=== PATIENT | male | born 1975 | race African-American/Black ===

== ENCOUNTER 2020-11-29 20:51 | Emergency (ER) | payer OTHER ==
[~2020-11-29] VITALS: Ht 182.9 cm; Wt 102.2 kg
--- NOTE | 2020-11-29 21:19 | PHYS DOC ---
Past History Past Medical History: No Pertinent History Past Surgical History: No Surgical History Smoking: Non-smoker Alcohol Use: None Drug Use: None Adult General HPI HPI Previously healthy 45-year-old male was evaluated in the emergency department complaint of laceration right dorsal foot. Patient was at work. He ran into a old bed metal frame and sustained injury to his dorsal aspect right foot. Patient had bled profusely. Hemostasis obtained prior to arrival to the ER. Patient does not recall tetanus shot for some years now. Denies any fever, chills, nausea or vomiting. Injury occurred at ground-level. Pain minimal at present. Has not taken any analgesics or anti-inflammatory. Review of Systems Review of Systems Constitutional: Denies fever or chills [] Eyes: Denies change in visual acuity, redness, or eye pain [] HENT: Denies nasal congestion or sore throat [] Respiratory: Denies cough or shortness of breath [] Cardiovascular: No additional information not addressed in HPI [] GI: Denies abdominal pain, nausea, vomiting, bloody stools or diarrhea [] Musculoskeletal: Denies back pain or joint pain [] Integument: Laceration right dorsum foot] All other systems were reviewed and found to be within normal limits, except as documented in this note. Physical Exam Physical Exam Constitutional: Well developed, well nourished, no acute distress, non-toxic appearance. [] Cardiovascular:Heart rate regular rhythm, no murmur [] Lungs & Thorax: Bilateral breath sounds clear to auscultation [] Abdomen: Bowel sounds normal, soft, no tenderness, no masses, no pulsatile masses. [] Skin: Superficial laceration dorsum fourth measured 1.55 cm length. Hemostasis obtained. No foreign body. Extremities: No tenderness, no cyanosis, no clubbing, ROM intact, no edema. [] Neurologic: Alert and oriented X 3, normal motor function, normal sensory function, no focal deficits noted. [] EKG EKG [] Radiology/Procedures Radiology/Procedures [] Heart Score C/O Chest Pain: N/A Risk Factors: Risk Factors: DM, Current or recent (<one month) smoker, HTN, HLP, family history of CAD, obesity. Risk Scores: Risk Factors: DM, Current or recent (<one month) smoker, HTN, HLP, family history of CAD, obesity. Course & Med Decision Making Course & Med Decision Making Patient was evaluated and examined immediately upon arrival to the ER. He sustained an injury to his right dorsum foot at work against old bed frame. His tetanus immunization is unknown. He was administered IM tetanus immunization. His wound was evaluated. He does have superficial laceration 1.5 cm length. Hemostasis obtained. Wound was cleaned with Hibiclens. This was approximated with Steri-Strip. Wound care instruction provided to the patient. Close monitoring for infection discussed. He will have close follow-up with his primary care provider. Ibup rofen or Tylenol as needed for pain. Dragon Disclaimer Dragon Disclaimer This electronic medical record was generated, in whole or in part, using a voice recognition dictation system. Departure Departure: Impression: Primary Impression: Superficial laceration of right foot Disposition: HOME / SELF CARE / HOMELESS Condition: GOOD Referrals: PCP,UNKNOWN (PCP) Additional Instructions: Please keep the wound area clean and dry. May remove the Steri-Strips in 48 hours. May apply Neosporin or triple antibiotic ointment as needed for wound care. Anticipate improvement. Monitor for any signs of infection including worsening redness, erythema, swelling and pain. Follow-up with primary care pro vider in 2 to 3 days, sooner if needed. VENANCIO GEIGER MD Nov 29, 2020 21:19
[2020-11-29 21:23] VITALS: BP 131/72
[2020-11-29] MEDS ORDERED: DIPH,PERTUSS(ACELL),TET VAC/PF 0.5 ML SYRINGE. VAX IM ONE (22:00)
== END 2020-11-29 22:07 | disposition home or self-care (01) ==
LOC: ER 20:51
DX: S91.311A Laceration without foreign body, right foot, initial encounter (principal); W26.8XXA Contact with other sharp object(s), not elsewhere classified, initial encounter; Y93.89 Activity, other specified; Y92.89 Other specified places as the place of occurrence of the external cause; Y99.8 Other external cause status
CPT/HCPCS: 90471; 90715; 99283-25